=== PATIENT | female | born 1990 | race Caucasian/White ===

== ENCOUNTER 2023-10-14 09:11 | Outpatient (CLI) | payer MEDICAID, SELFPAY ==
--- NOTE | 2023-10-14 09:15 | CRLHL7_ITS ---
For Patients: As a result of the Cures Act, medical imaging exams and procedure reports are released immediately into your electronic medical record. You may view this report before your referring provider. If you have questions, please contact your health care provider. INDICATION: First trimester scan, establish dates. COMPARISON: None. TECHNIQUE: Real-time wu-scale imaging of the pelvis was performed. FINDINGS: Sonographic imaging demonstrates a single living intrauterine gestation. The embryo demonstrates a regular cardiac rate measuring 173 beats per minute. The embryo`s crown-rump length measurement of 2.7 cm corresponds to a gestational age of 9 weeks 4 days with a sonographic due date of 05/14/2024. There is a normal-appearing yolk sac. There are no gross abnormalities noted within the embryo at this early state of development. The gestational sac has a normal appearance. There is no evidence of a perigestational hemorrhage. The amount of fluid within the sac appears appropriate for gestational age. The cervix is closed. The myometrium appears normal. The ovaries are of normal size. There are no suspicious fluid collections noted in the cul-de-sac. IMPRESSION: Normal first trimester OB ultrasound exam. Gestational age calculated at 9 weeks 4 days with a sonographic due date of 05/14/2024. Dictated by Stevenson Hutton MD @ 10/14/2023 9:58:12 AM (Electronically Signed)
== END 2023-10-14 09:12 | disposition home or self-care (01) ==
LOC: US 09:12
PROVIDERS: Visit Provider Advanced Practice Midwife
DX: Z34.91 Encounter for supervision of normal pregnancy, unspecified, first trimester (principal); Z3A.09 9 weeks gestation of pregnancy
CPT/HCPCS: 76817

== ENCOUNTER 2023-10-14 10:01 | Outpatient (CLI) | payer MEDICAID, SELFPAY | END 2023-10-14 10:02 | disposition home or self-care (01) | PROVIDERS: Visit Provider Advanced Practice Midwife | DX: Z34.91 Encounter for supervision of normal pregnancy, unspecified, first trimester (principal) | CPT/HCPCS: 86592; 86703; 86704; 86706; 86762; 86787; 86803; 86850; 86900; 86901; 87086; 87340 ==

== ENCOUNTER 2024-08-04 18:44 | Emergency (ER) | payer MEDICAID, SELFPAY ==
[2024-08-04 19:23] VITALS: BP 154/80; PULSE 85; RESP 20; TEMP 36.5; O2SAT 99
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
[2024-08-04 21:00] VITALS: BP 135/74; PULSE 81; RESP 20; TEMP 36.5; O2SAT 99
[2024-08-04 21:02] VITALS: BP 135/74; PULSE 81; RESP 20; TEMP 36.5
== END 2024-08-04 21:04 | disposition home or self-care (01) ==
LOC: ED 20:19
PROVIDERS: Emergency Provider Emergency Medicine Emergency Medical Services
DX: S61.012A Laceration without foreign body of left thumb without damage to nail, initial encounter (principal); W26.0XXA Contact with knife, initial encounter
CPT/HCPCS: 12001; 99282; 99284

== ENCOUNTER 2024-08-22 10:20 | Emergency (ER) | payer MEDICAID, SELFPAY ==
[2024-08-22 10:24] VITALS: BP 117/85; PULSE 83; RESP 16; TEMP 36.7; O2SAT 97; BMI 23.7
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
== END 2024-08-22 12:23 | disposition home or self-care (01) ==
PROVIDERS: Emergency Provider Family Medicine
DX: L08.9 Local infection of the skin and subcutaneous tissue, unspecified (principal)
CPT/HCPCS: 87070; 99282; 99283; 99284

== ENCOUNTER 2025-09-21 13:56 | Outpatient (CLI) | payer MEDICAID, SELFPAY | END 2025-09-21 13:57 | disposition home or self-care (01) | PROVIDERS: Visit Provider Midwife | DX: R53.83 Other fatigue (principal); Z13.6 Encounter for screening for cardiovascular disorders | CPT/HCPCS: 80053; 80061; 82306; 83540; 83550; 84443 ==